=== PATIENT | female | born 2000 | race Caucasian/White ===

== ENCOUNTER 2023-10-07 17:20 | Emergency (ER) | payer OTHER, SELFPAY ==
[2023-10-07 17:23] VITALS: BP 118/81; PULSE 120; RESP 18; TEMP 36.7; O2SAT 100; BMI 20.6
[2023-10-07 17:45] LABS: Mucous, Urine 0 SEEN /hpf (<or=2+); White Blood Cells 0 SEEN /hpf (0-5)
[2023-10-07 17:48] LABS: Color, Urine Yellow (Yellow); Glucose, Dipstick Normal (Normal); Ketone-Dipstick Negative (Negative); Leukocyte Esterase-Dipstick Negative /ul (Negative); Nitrite-Dipstick Negative (Negative); Occult Blood-Urine 150 /ul (Negative); Protein-Dipstick Negative (Negative); Urine Bilirubin Dipstick Negative (Negative); Urine Clarity Clear (Clear); Urine Urobilinogen Normal (Normal)
[2023-10-07 17:54] LABS: Internal QC Validated? YES +Cl - CLEAR BKGD
[2023-10-07 17:55] LABS: Pregnancy, Urine Positive Negative
[2023-10-07 18:05] LABS: Bacteria RARE /hpf (None Seen); Squamous Epithelial Cells - UA 0-5 SEEN /hpf (5-10)
[2023-10-07 18:06] LABS: Red Blood Cells-Urine 0-5 SEEN /hpf (0-5)
--- NOTE | 2023-10-07 18:31 | ED.VIS.FEGU ---
HPI HPI - Female History of Present Illness Chief Complaint: Vag Bld, Preg Informant: patient and spouse/S.O. Narrative Narrative: Patient , , she had her last normal menstrual period 07/08/2023, has been bleeding vaginally off-and-on for the past 3 weeks along with some occasional mild pelvic cramping. She had an ultrasound today ordered by her ambulatory services representative that showed suspected molar , they discussed with the energy and conservation technician on-call here who is expecting her according to the patient. She denies any syncope. She has had some daily subjective fevers, saying that she just feels warm. She denies any dyspnea, severe abdominal pains, vomiting, trouble urinating. She has not passed any tissue. Her bleeding has been less than menstrual cycle. PFSH PFSH Medical History no medical history no medical history Home Medications NK 10/07/23 [History Last Taken Unknown] Allergy/AdvReac Type Severity Reaction Status Date / Time Milk Containing Products AdvReac Abd Verified 10/07/23 17:23 (Dairy) cramps/diarrhea Social History Smoking Status: Never smoker ROS ROS ED Constitutional Constitutional ED: Denies chills or fever(s) Eyes Eyes: Denies change in vision or diplopia ENT ENT ED: Denies rhinorrhea or sore throat Cardiovascular Cardiovascular: Denies chest pain or palpitations Respiratory/Chest Respiratory/Chest: Denies cough or dyspnea Gastrointestinal Gastrointestinal: Reports abdominal pain; Denies diarrhea, nausea or vomiting Genitourinary Genitourinary ED: Reports vaginal bleeding; Denies dysuria or hematuria Musculoskeletal Musculoskeletal: Denies back pain or neck pain Integumentary Denies abscess or rash Neurologic Neurologic: Denies headache(s), paresthesias or weakness Psychiatric Psychiatric: Denies anxiety or suicidal thoughts EXAM Physical Exam Const Vital Signs: 10/07/23 17:23 10/07/23 19:55 10/07/23 21:00 Temperature 98.1 F Temperature Source Temporal Pulse Rate 120 H 89 85 Respiratory Rate 18 16 16 Blood Pressure 118/81 H 103/66 106/79 Blood Pressure Mean 93 78 88 Pulse Ox 100 98 95 Oxygen Delivery Method Room Air Room Air Room Air 10/07/23 21:49 Temperature 97.6 F L Temperature Source Pulse Rate 92 Respiratory Rate 18 Blood Pressure 109/76 Blood Pressure Mean 87 Pulse Ox 98 Oxygen Delivery Method Positive well nourished and well developed General Appearance ED: well developed and NAD HEENT Reports moist mucous membranes normocephalic and atraumatic Eyes PERRL and EOMs intact bilaterally Neck full ROM and supple Resp normal respiratory effort and clear to auscultation bilaterally Cardio regular rate, regular rhythm and no murmurs GI non-tender GI Narrative: Abdominal distended to about the umbilicus, no significant tenderness. Benign abdomen. Auscultation: normoactive bowel sounds Palpation: soft Speculum Exam - Vagina: vaginal bleeding Back/Spine no CVA tenderness General Back: other FROM Extremity normal to inspection General Extremety ED: Negative for edema, pulses abnormal or tenderness General Extremity: Negative for edema or pulses abnormal Neuro oriented x3, CN's II-XII intact bilaterally and no sensory deficits noted Sensorium / Orientation: awake and alert Motor Exam: strength 5/5 throughout Skin no rashes or lesions noted and no wounds MDM MDM MDM Narrative Medical decision making narrative: I obtained some labs including quantitative hCG, urinalysis. I reviewed her outpatient ultrasound, it does state probability of a molar , however there is a lying on the findings by the radiologist that states there is a fluid collection and it does not give any more details about it except for the size. I discussed with OB Dr. Mckinney, she requested a repeat ultrasound which was done and afterwards, I reviewed the images and the result which I agree with, it did discuss a fluid collection that is intrauterine and seems to be part of the molar . It seems in discussions that were had prior to the patient's arrival here in the ER between OB and nurse ambulatory services representative, there was concern about the described fluid collection by the radiologist reading the outpatient ultrasound since it did not describe if it was intrauterine or if it was extrauterine, an abscess/infection, or related to molar invasion into or through the uterine wall. Plus, the patient was describing subjective fevers every day for the past couple months, and it was thought she should be evaluated to make sure she is well and not septic. Putting all of this into perspective, she does not have a leukocytosis, a fever here, nor abnormal vital signs when rechecked after triage. She is well-appearing and certainly not septic. Given that the ultrasound we obtained here shows no extrauterine acute process except for ovarian cysts, and her exam is very benign, she is not bleeding heavily and her blood counts are stable, OB and I both believe she can be discharged home to follow-up after the weekend as an outpatient and there is no need for emergent procedure/surgery. We discussed reasons to return before then, namely vaginal hemorrhaging or severe acute pain, but the current plan is to have her follow-up in the office on Tuesday for a planned D&C next week. All of this was discussed in detail with the patient and her spouse. History & Record Review Additional record(s) reviewed:: Prior outpatient record (Outpatient ultrasound performed this morning, interpreted as likely molar ) Lab Data Attestation: I reviewed the patient's lab results. Labs: Laboratory Results - last 24 hr 10/07/23 10/07/23 10/07/23 17:37 18:45 19:14 WBC 9.3 RBC 3.96 L Hgb 12.9 Hct 38.9 MCV 98.2 MCH 32.6 H MCHC 33.2 RDW Std Deviation 44.4 H RDW Coeff of Vince 12.3 Plt Count 233 MPV 9.4 Immature Gran % (Auto) 0.400 Neut % (Auto) 79.7 H Lymph % (Auto) 13.2 L [place] % (Auto) 6.0 Eos % (Auto) 0.4 Baso % (Auto) 0.3 Absolute Neuts (auto) 7.4 Absolute Lymphs (auto) 1.23 Nucleated RBC % 0 Sodium 141 Potassium 3.7 Chloride 107 Carbon Dioxide 29.0 Anion Gap 5 BUN 4 L Creatinine 0.51 L Estim Creat Clear Calc 168.44 Est GFR (MDRD) Af Amer 189 Est GFR (MDRD) Non-Af 156 BUN/Creatinine Ratio 7.9 L Glucose 99 Calcium 8.8 HCG, Quant 96914 H Urine Color Yellow Urine Clarity Clear Urine pH 8.0 Ur Specific [place] 1.010 Urine Protein Negative Urine Glucose (UA) Normal Urine Ketones Negative Urine Occult Blood 150 H Urine Nitrite Negative Urine Bilirubin Negative Urine Urobilinogen Normal Ur Leukocyte Esterase Negative Urine RBC 0-5 SEEN Urine WBC 0 SEEN Ur Squamous Epith Cells 0-5 SEEN Urine Bacteria RARE Urine Mucus 0 SEEN Urine Test Positive H Radiography Diagnostic Testing: Clinical Impression(s) from Imaging Studies Obstetrics Ultrasound 10/07/23 19:07 IMPRESSION: Findings consistent with molar and large right ovarian cysts Electronically Signed: Esequiel Casiano MD at 20:00 EDT , ADDENDUM: 10/07/232017 IMPRESSION: Findings consistent with molar and large right ovarian cysts N.B. : The above Results were Read Back by Esequiel Casiano MD to Cristino Guzmán MD, and understanding confirmed on 10/07/2023 20:11:50 (ET). Electronically Signed: Esequiel Casiano MD at 20:00 EDT , Management Discussion w/another healthcare provider: Public Health Educator (OB dr Mckinney) Discharge Plan Triage Chief Complaint: Vag Bld, Preg ED Provider: Cristino Guzmán Dx/Rx/DC Orders Clinical Impression: Vaginal bleeding in , Molar Instructions: Hydatidiform Mole Dc Prescriptions: No Action NK Primary Care Provider: Care Physician,No Primary Referrals: Ophelia Mckinney DO [Med Staff - Active Staff] - (Office to contact you Tuesday morning for follow-up instructions likely to be seen in the office Tuesday) Disposition Disposition: Home, Self Care Discharge Date/Time: 10/07/23 21:59
[2023-10-07 18:53] LABS: Absolute Lymphocyte Count 1.23 X10^3/uL (0.83-4.51); Absolute Neutrophil Count 7.4 X10^3/uL (2.0-7.7); Basophil# 0.03 X10^3/uL; Basophil% 0.3 % (0-1); Eosinophil# 0.04 X10^3/uL; Eosinophils% 0.4 % (0-5); Hematocrit 38.9 % (37-47); Hemoglobin 12.9 g/dL (12.0-15.0); Lymphocyte # 1.23 X10^3/ul (0.83-4.51); Lymphocyte % 13.2 % (19-41); Mean Corp Hgb Conc 33.2 g/dL (32-36); Mean Corpuscular Hgb 32.6 pg (27.0-32.0); Mean Corpuscular Volume 98.2 fL (81-99); Mean Platelet Vol. 9.4 fl (6.2-12.0); Monocyte# 0.56 X10^3/uL; NRBC Flagged by Analyzer 0 % (0-5); Neutrophil # 7.41 X10^3/uL (2.7-7.7); Neutrophil % 79.7 % (47-70); Platelet Count 233 K/mm3 (150-450); RBC Distribution Width CV 12.3 % (11.6-14.6); RBC Distribution Width SD 44.4 fl (35.1-43.9); Red Blood Count 3.96 M/mm3 (4.2-5.4); White Blood Count 9.3 K/mm3 (4.4-11.0)
[2023-10-07 19:07] LABS: Anion Gap 5 (5-15); BUN 4 mg/dL (7-18); BUN/Creat Ratio 7.9 RATIO (10-20); Calcium,Total 8.8 mg/dL (8.5-10.1); Chloride 107 mmol/L (98-107); Creatinine, Serum 0.51 mg/dL (0.55-1.02); EST Glomerular Filtration Rate 156 mL/min (>60); Est Glom Filt Rate - Afr Amer 189 mL/min (>60); Estimated Creatinine Clearance 168.44 ml/min; Glucose 99 mg/dL (74-106); Potassium 3.7 mmol/L (3.5-5.1); Sodium Level 141 mmol/L (136-145)
--- NOTE | 2023-10-07 19:07 | US_ITS ---
We are attempting to reach an attending provider to discuss findings. An addendum with communication details will be sent when the communication is complete. STUDY: FIRST TRIMESTER OBSTETRICAL ULTRASOUND REASON FOR EXAM: Female, 23 years old preg, bleeding LMP: TECHNIQUE: Transvaginal TECHNICAL QUALITY: Adequate. PRIOR ULTRASOUND: None. FINDINGS: Normal intrauterine gestation visualized however there is a large multi septated fluid density lesion within the endometrial canal which has the appearance consistent with molar . The uterus measures 7.3 x 9.5 x 6.7 cm. There is no demonstrated uterine fibroid. The cervix is closed. The right ovary measures 10 x 7.8 x 4.9 cm. 2 large cysts measuring 4.1 x 4.7 x 4.8 cm and 4.6 x 4.7 x 4.3 cm. There is no visualized right adnexal mass or complex lesion. The left ovary measures 3.2 x 2.8 x 2.6 cm. Small cyst measuring 2.2 x 1.9 x 1.5 cm.. There is no visualized left adnexal mass or complex lesion. There is minimal fluid in the cul de sac. US/Transvaginal w/Preg US IMPRESSION: Findings consistent with molar and large right ovarian cysts Electronically Signed: Esequiel Casiano MD at 20:00 EDT ,
[2023-10-07 19:55] VITALS: BP 103/66; PULSE 89; RESP 16; O2SAT 98
[2023-10-07 20:28] LABS: hCG Titer Quant., Serum 55364 mIU/mL (1-3)
[2023-10-07 21:00] VITALS: BP 106/79; PULSE 85; RESP 16; O2SAT 95
[2023-10-07 21:49] VITALS: BP 109/76; PULSE 92; RESP 18; TEMP 36.4; O2SAT 98
== END 2023-10-07 21:59 | disposition home or self-care (01) ==
PROVIDERS: Emergency Provider Emergency Medicine; Visit Provider Emergency Medicine
DX: O02.0 Blighted ovum and nonhydatidiform mole (principal)
CPT/HCPCS: 76817; 80048; 81001; 81025; 84702; 85025; 99283; A4216

== ENCOUNTER 2023-10-11 05:33 | Day surgery (SDC) | payer SELFPAY, OTHER ==
--- NOTE | 2023-10-10 17:06 | PCM.HP.BLA ---
History and Physical Date of Admission: 10/11/23 HPI: This?23 year old??G 1?P 0?at approximately 14?weeks EGA ?by LMP presenting for pre-operative visit..??Seen by machine maintenance mechanic and referred for ultrasound. Ultrasound suspects molar . She has been bleeding for about 3 weeks. Less than a period. Has had some cramping but not much pain. ED confirmed abnormal ultrasound finding. HCG 55,000+. Discussed suspected Molar based on ultrasound imaging. This is not a normal . No fetus was seen. There is an increased risk of bleeding and invasion of the molar into the uterus. Stressed following HCG post op to verify resolution before trying to conceive again. ? She is scheduled for Suction D&C, for suspected molar on 10/11/23. Procedure discussed along with risks, benefits and complications. Other alternatives discussed for management. Consent form signed? Yes. Agreeable to blood products if needed. ? PAST MEDICAL HISTORY History reviewed. No pertinent past medical history. ? ? PAST SURGICAL HISTORY History reviewed. No pertinent surgical history. No previous surgeries ? CURRENT MEDICATIONS Current Outpatient Medications Medication Sig Dispense Refill ? ondansetron HCl (ZOFRAN ORAL) Take by mouth. ? ? ? No current facility-administered medications for this visit. ? ? ALLERGIES: Patient has no known allergies. ? PERSONAL HISTORY: SOCIAL HISTORY Social History ? Tobacco Use ? Smoking status: Never ? Smokeless tobacco: Never Vaping Use ? Vaping Use: Never used Substance Use Topics ? Alcohol use: Never ? Drug use: Never ? FAMILY HISTORY: FAMILY HISTORY No family history on file. ? REVIEW OF SYMPTOMS: negative except as noted above PHYSICAL EXAMINATION: ? VITALS: Blood pressure 102/60, height 5' 9 (1.753 m), weight 141 lb (64 kg), last menstrual period 07/08/2023. ? GENERAL: The patient is well nourished, well hydrated in no acute distress. , The patient is oriented to time, place, and person. LUNGS: Clear to auscultation bilaterally. no wheezes, rhonchi or rales HEART: Regular rate and rhythm and Normal heart sounds GENITALIA: exam deferred WET PREP: Not indicated ? IMPRESSION: Abnormal suspect molar ? PLAN: Suction D&C ? I have reviewed and updated past medical and surgical history, medications and allergies Aubrie Eastman MD ? D/w her risks of surgery including but not limited to infection, VTE, hemorrhage, blood transfusion, bowel, bladder, ureter or nerve injury or even . This H&P was completed by Dr. Eastman in hte office on 10/10/23 Assessment & Plan Assessment/Plan (1) Vaginal bleeding in : (2) Molar :
[2023-10-11] VITALS (7 sets, daily range): BP systolic 92–113; BP diastolic 59–79; PULSE 73–89; RESP 12–18; TEMP 36.6–37.4; O2SAT 95–99; BMI 20.8
[2023-10-11] MEDS: Lactated Ringers 1,000 ML 15 ML IV (06:40)
[2023-10-11] MEDS: Doxycycline 200 MG in Dextrose 5%-Water (250mL Bag) 250 ML 135 MG IV (06:41)
--- NOTE | 2023-10-11 07:30 | POC_PTH ---
PATIENT: ALICJA MORLEY LOC: [facility] [place] U#:[id number] AGE/SX: 23/F ROOM: RE10/11/[address]: Dr. Venita Shea MD : 2000 BED: DIS: 10/11/2023 SPEC #: [id number] RECD: 10/11/23 08:31 STATUS: TODD EVIN #: [id number] MIRANDA: 10/11/23 07:[address]: Venita Shea DEPT: SURGICAL PATHOLOGY RECD BY: Massiel Beatty ENTERED: 10/11/23 08:56 SP TYPE: PROD CONC OTHR DR: Justen Rockwell PA-C Tissues: Product of conception, NOS Procedures: Surgery Specimen Level IV HEADER OPERATION: Dilation and curettage, suction PRE-OP DIAGNOSIS: Vaginal bleeding in , Molar TISSUE SUBMITTED: Products of conception MICROSCOPIC DIAGNOSIS Products of conception, dilation and curettage: The morphology and lack of P57 immunoreactivity in cytotrophoblasts and villous stroma is consistent with a complete hydatidiform molar . See comment. DANNA: 10/19/23 COMMENT The specimen is sent to [facility] for expert opinion, reviewed by Dr. Hammonds and the above diagnosis is rendered. The complete report is viewable in the patient's EMR. Correlation with clinical, laboratory studies and appropriate follow up are necessary. Case has been reviewed in consultation with Dr. Kidd who concurs with the above diagnosis. IDC:AM MICROSCOPIC DESCRIPTION Slides are reviewed. GROSS DESCRIPTION Received in fixative is one container labeled with the patient's name and designated Product of conception. The specimen consists of multiple fragments of pink hemorrhagic soft tissue mixed with blood clot in aggregate measure 11.0 x 10.0 x 3.0 cm. tissue is not identified. Multiple vesicles measuring 0.2 x 0.7cm in greatest dimension are noted. Pr Specialist tissue are submitted in 10 cassettes. DANNA/ 10/11/2023 TC:5 CPT: 43990
--- NOTE | 2023-10-11 07:49 | DCINST_ITS ---
Discharge Instructions Diet Discharge Diet: No restrictions Activity Discharge Activity: May Shower Return to work on:: 10/14/23 May resume sexual activity in: 2 weeks Lifting Restrictions: none Additional Activity Instructions:: Use contraception to prevent until instructed otherwise by your physicians Dressing / Incision Call your doctor if your incision/area has: Sudden Increased Bleeding and Foul Smelling Discharge Call your doctor if you observe: Fever of 101 or Higher and Using more than 1 pad per hour (for 2 hrs in a row) Follow Up Care Please Follow Up With: Venita Shea MD When: 2-4 weeks or as needed. Call [phone] to make an appointment or with any concerns. Test Results: Test results from this visit will be discussed in further detail at your follow- up appointment, if applicable. Discharge Plan Admission Primary Reason for Your Visit: Suction dilation and curettage Attending Provider: Venita Shea Primary Care Provider: Justen Rockwell Discharge Orders/Prescriptions Prescriptions: No Action ondansetron HCl 4 mg tablet 4 mg PO Q12H PRN PRN (Reason: vomiting) ana root extract 15 mg tablet,chewable 15 mg PO BID squeaky clean 1 tab PO BID PNV cmb#95-ferrous fumarate-FA [ Multivitamins] 28 mg iron- 800 mcg tablet 1 tab PO DAILY Hold Instructions: on hold d/t diagnosis Referrals / Follow Up: Justen Rockwell PA-C [Primary Care Provider] - Disposition Disposition (needs filled in before D/C Order can be placed): Home, Self Care
--- NOTE | 2023-10-11 07:50 | PCM.OPRPT ---
Problems Associated Problem List Diagnoses (1) Molar : (2) Vaginal bleeding in : Report of Operation Date of Procedure: 10/11/23 Pre-Operative Diagnosis: molar Post-Operative Diagnosis: same Surgery/Procedure Performed:: suction dilation and curettage Description of Surgical Findings:: normal cervix and vagina Surgeon: Venita Shea body trimmer: Hetal Hodge MS3 Type of Anesthesia: MAC Anesthesiologist: Fredy Colmenares Special Medications: none Specimen's removed: products of conception Drains: none Estimated Blood Loss (mL): 20 Fluids Replaced: 400 Description of Procedure: The patient was taken to the operating room where she was prepped and draped in a dorsolithotomy position. A bimanual examination was done and confirmed the uterus to be [8] weeks size and [anteverted]. A weighted speculum was placed in the vagina and the anterior lip of the cervix was grasped with a single-tooth tenaculum. The cervix was dilated serially. A [10] mm suction curette was placed to the uterine fundus and the suction was created. Ultrasound guidance was used during the procedure. Several passes were made to remove clots and products of conception. When minimal tissue was returning a gentle sharp curettage was then done of the uterine cavity. The uterine cry was appreciated and another gentle pass was made with the suction curette. The bright white endometrial stripe was noted with the ultrasound machine. At this point there is no active bleeding from the uterus and minimal blood and no further products of conception were removed. The instruments removed from the cervix and the cervix was observed and no active bleeding was identified. The tenaculum was removed off the cervix and hemostasis of the tenaculum site was assured. Made of the instruments removed from the vagina and the vaginal sweep was completed by me. Sponge and needle counts were correct. The patient was taken to the recovery room in stable condition. Grafts/Implants Used: none Procedure Start Time: 07:45 Procedure Stop Time: 08:10 Complications none Admit VTE Documentation VTE Present on Admission: No VTE Mechan Device Prophylaxis: SCD's VTE Pharm Prophylaxis ordered?: No Reason prophylaxis not ordered:: Procedure Not Indicated
[2023-10-11 09:26] LABS: Hematocrit 39.2 % (37-47); Hemoglobin 12.8 g/dL (12.0-15.0); Mean Corp Hgb Conc 32.7 g/dL (32-36); Mean Corpuscular Hgb 32.7 pg (27.0-32.0); Mean Corpuscular Volume 100.3 fL (81-99); Mean Platelet Vol. 10.2 fl (6.2-12.0); Platelet Count 223 K/mm3 (150-450); RBC Distribution Width CV 12.5 % (11.6-14.6); RBC Distribution Width SD 46.3 fl (35.1-43.9); Red Blood Count 3.91 M/mm3 (4.2-5.4); White Blood Count 7.5 K/mm3 (4.4-11.0)
[2023-10-11 10:04] LABS: hCG Titer Quant., Serum 51815 mIU/mL (1-3)
== END 2023-10-11 09:28 | disposition home or self-care (01) ==
LOC: SDC 05:34 → AC 05:36
PROVIDERS: PCP Physician Assistant; Referring Provider Obstetrics & Gynecology; Visit Provider Obstetrics & Gynecology
PROC: (CPT 59821; principal; 2023-10-11 07:15)
DX: O02.0 Blighted ovum and nonhydatidiform mole (principal); Z3A.14 14 weeks gestation of pregnancy
CPT/HCPCS: 59821; 01965; 84702; 85027; 86850; 86900; 86901; 88305; J7120; J2405